=== PATIENT | male | born 1960 | race Caucasian/White ===

== ENCOUNTER 2022-07-21 07:34 | Emergency (ER) | payer SELFPAY ==
[2022-07-21 09:04] LABS: BASOPHILS PERCENT AUTO 0.1 % (0.0-1.5); EOSINOPHILS PERCENT AUTO 0.1 % (0.0-7.0); HEMATOCRIT 45.8 % (38.0-50.0); HEMOGLOBIN 16.5 g/dL (13.0-17.0); LYMPHOCYTES PERCENT AUTO 7.2 % (16.0-40.0); MEAN CORPUSCULAR HEMOGLOBIN 31.1 pg (27.0-32.0); MEAN CORPUSCULAR VOLUME 86.4 fL (80.0-98.0); MONOCYTES ABSOLUTE AUTO 0.7 K/uL (0.0-0.8); NEUTROPHILS ABSOLUTE AUTO 12.5 K/uL (1.4-5.7); NEUTROPHILS PERCENT AUTO 87.6 % (48.0-80.0); NRBC ABSOLUTE 0 K/uL; PLATELET COUNT,PLT 193 K/uL (150-400); WHITE BLOOD CELL COUNT,WBC 14.25 K/uL (4.0-11.0)
[2022-07-21 09:32] LABS: A/G RATIO 1.2 (0.9-1.6); BILIRUBIN TOTAL 0.8 mg/dL (0.2-1.0); CALCIUM 9.4 mg/dL (8.5-10.1); CARBON DIOXIDE,CO2 24.6 mmol/L (21.0-32.0); CREATININE 1.4 mg/dL (0.8-1.3); EST CRCL DRUG DOSING (CG) 51.15 mL/min; POTASSIUM,K 3.8 mmol/L (3.5-5.1); PROTEIN TOTAL,TP 7.4 g/dL (6.4-8.2)
[2022-07-21] MEDS ORDERED: Iopamidol 755 MG/ML 500 ML Multipack Bottle IVPUSH ONE (10:42)
== END 2022-07-21 11:50 | disposition home or self-care (01) ==
LOC: MW.ED 07:34
DX: N13.2 Hydronephrosis with renal and ureteral calculous obstruction (principal)
CPT/HCPCS: 36415; 74177; 80053; 85025; 99284; Q9967